=== PATIENT | female | born 1950 | race Caucasian/White ===

== ENCOUNTER 2016-08-25 08:18 | Outpatient (CLI) | payer MEDICARE, OTHER | END 2016-08-25 08:19 | disposition home or self-care (01) | DX: E03.9 Hypothyroidism, unspecified (principal); Z79.899 Other long term (current) drug therapy ==

== ENCOUNTER 2016-09-13 08:00 | Outpatient (CLI) | payer MEDICARE, OTHER | END 2016-09-13 23:59 | disposition home or self-care (01) | DX: E78.2 Mixed hyperlipidemia (principal); D64.9 Anemia, unspecified; Z13.9 Encounter for screening, unspecified ==

== ENCOUNTER 2016-09-14 10:51 | Outpatient (CLI) | payer MEDICARE, OTHER | END 2016-09-14 10:52 | disposition home or self-care (01) | DX: M81.0 Age-related osteoporosis without current pathological fracture (principal); Z78.0 Asymptomatic menopausal state ==

== ENCOUNTER 2016-09-14 10:53 | Outpatient (CLI) | payer MEDICARE, OTHER | END 2016-09-14 10:54 | disposition home or self-care (01) | DX: I71.2 Thoracic aortic aneurysm, without rupture (principal); M81.0 Age-related osteoporosis without current pathological fracture; Z78.0 Asymptomatic menopausal state ==

== ENCOUNTER 2016-11-12 13:44 | Outpatient (CLI) | payer MEDICARE, OTHER | END 2016-11-12 13:45 | disposition home or self-care (01) | DX: Z12.31 Encounter for screening mammogram for malignant neoplasm of breast (principal) ==

== ENCOUNTER 2017-03-15 10:35 | Outpatient (CLI) | payer MEDICARE, OTHER ==
[2017-03-15 16:22] LABS: BASOPHILS # (AUTO) 0.1 10^3/uL (0.0-0.1); BASOPHILS % (AUTO) 1.2 %; EOSINOPHILS # (AUTO) 0.1 10^3/uL (0.0-0.7); EOSINOPHILS % (AUTO) 3.1 %; HCT - HEMATOCRIT 35.8 % (37.0-47.0); HGB - HEMOGLOBIN 12.3 g/dL (12.0-16.0); LYMPHOCYTES % (AUTO) 42.7 %; MEAN CORPUSCULAR HEMOGLOBIN 30.8 pg (27.0-31.0); MEAN CORPUSCULAR HGB CONC 34.3 g/dL (32.0-36.0); MEAN CORPUSCULAR VOLUME 89.9 fL (81.0-99.0); MONOCYTES # (AUTO) 0.3 10^3/uL (0.0-1.0); MONOCYTES % (AUTO) 6.3 %; NEUTROPHILS # (AUTO) 2.2 10^3/uL (1.5-6.6); NEUTROPHILS % (AUTO) 46.7 %; RED BLOOD COUNT 3.98 10^6/uL (4.20-5.40); RED CELL DISTRIBUTION WIDTH 13.9 % (12.0-15.0); UNCORRECTED WHITE BLOOD COUNT 4.8 x10^3/uL; WHITE BLOOD COUNT 4.8 x10^3/uL (4.8-10.8)
== END 2017-03-15 10:36 | disposition home or self-care (01) ==
LOC: LAB.R 10:35
PROVIDERS: ATTEND Nurse Practitioner Primary Care
DX: D64.9 Anemia, unspecified (principal)
CPT/HCPCS: 85025

== ENCOUNTER 2017-09-19 16:18 | Outpatient (CLI) | payer MEDICARE, OTHER | END 2017-09-19 16:19 | disposition home or self-care (01) | LOC: DI 16:18 | PROVIDERS: ATTEND Physician Assistant Medical | DX: Z53.9 Procedure and treatment not carried out, unspecified reason (principal) ==

== ENCOUNTER 2017-09-20 08:38 | Outpatient (CLI) | payer MEDICARE, OTHER ==
--- NOTE | 2017-09-20 18:28 | CT Report ---
DATE OF SERVICE: 09/20/2017 CT SINUSES WITHOUT CONTRAST: 09/20/2017 CLINICAL INDICATION: Chronic sinus disease. TECHNIQUE: Axial CT images of the paranasal sinuses were obtained without contrast, following which sagittal and coronal reconstructions were performed. In accordance with CT protocol optimization, one or more of the following dose reduction techniques were utilized for this exam: Automated exposure control, adjustment of mA and/or KV based on patient size, or use of iterative reconstructive technique. FINDINGS: Postoperative changes are seen in the mandible and maxilla. There is mild mucosal thickening in the inferior aspect of the right maxillary sinus. The ostiomeatal units are patent bilaterally. No air fluid levels are present. No osseous destruction is appreciated. IMPRESSION: MILD CHRONIC RIGHT MAXILLARY SINUS DISEASE. POSTOPERATIVE CHANGES. TD: 09/20/2017 18:27
== END 2017-09-20 08:39 | disposition home or self-care (01) ==
LOC: DI 08:38
PROVIDERS: ATTEND Physician Assistant Medical
DX: J32.0 Chronic maxillary sinusitis (principal)
CPT/HCPCS: 70486

== ENCOUNTER 2017-09-21 15:54 | Outpatient (CLI) | payer MEDICARE, OTHER | END 2017-09-21 15:55 | disposition home or self-care (01) | LOC: LAB.R 15:54 | PROVIDERS: ATTEND Physician Assistant Medical | DX: R50.9 Fever, unspecified (principal); R10.84 Generalized abdominal pain; R19.7 Diarrhea, unspecified | CPT/HCPCS: 81599; 82710; 83630; 87045; 87046; 87177; 87209; 87493 ==

== ENCOUNTER 2017-09-21 16:35 | Outpatient (CLI) | payer MEDICARE, OTHER ==
[2017-09-21 15:20] LABS: BASOPHILS % (AUTO) 0.3 %; EOSINOPHILS % (AUTO) 0.5 %; HGB - HEMOGLOBIN 12.2 g/dL (12.0-16.0); LYMPHOCYTES # (AUTO) 1.1 10^3/uL (1.5-3.5); LYMPHOCYTES % (AUTO) 14.3 %; MEAN CORPUSCULAR VOLUME 88.1 fL (81.0-99.0); MEAN PLATELET VOLUME 7.2 fL (7.9-10.8); MONOCYTES # (AUTO) 0.6 10^3/uL (0.0-1.0); MONOCYTES % (AUTO) 7.5 %; NEUTROPHILS % (AUTO) 77.4 %; PLT - PLATELET COUNT 198 10^3/uL (130-450); RED BLOOD COUNT 4.07 10^6/uL (4.20-5.40); RED CELL DISTRIBUTION WIDTH 13.8 % (12.0-15.0); WHITE BLOOD COUNT 7.8 x10^3/uL (4.8-10.8)
[2017-09-21 15:35] LABS: ALBUMIN 3.4 g/dL (3.2-5.5); ALBUMIN/GLOBULIN RATIO 0.9 (1.0-2.2); BILIRUBIN,TOTAL 0.5 mg/dL (0.2-1.0); CALCIUM 8.5 mg/dL (8.5-10.3); CREATININE 0.7 mg/dL (0.4-1.0); CRP - C-REACTIVE PROTEIN 5.3 mg/dL (0-1.0); TOTAL PROTEIN 7.1 g/dL (6.7-8.2)
[2017-09-21] MEDS ORDERED: IOPAMIDOL-300 100 ML VIAL ONE (16:44)
[2017-09-21] MEDS ORDERED: IOPAMIDOL-300 50 ML VIAL ONE (16:44)
[2017-09-21] MEDS: IOPAMIDOL-300 50 ML VIAL PO ONE (18:11)
[2017-09-21] MEDS: IOPAMIDOL-300 100 ML VIAL IVP ONE (18:12)
--- NOTE | 2017-09-21 18:37 | CT Preliminary Report ---
Exam: CT ABDOMEN/PELVIS W/ IMPRESSION: 1. Markedly abnormal colon. Differential includes colitis, pseudomembranous colitis, inflammatory bow el disease, ischemia. 2. Appendix not visualized. 3. Mild ascites. RADIA The call report notification system was initiated by Dr. Altagracia Franklin at 18:31 hrs on 09/21/17. The above findings were discussed with LISSA Steiner by Dr. Altagracia Franklin at 18:36 hrs on 09/21/17. SITE ID: [id number]
--- NOTE | 2017-09-21 18:52 | CT Report ---
EXAM: CT ABDOMEN AND PELVIS EXAM DATE: 09/21/2017 06:08 PM. CLINICAL HISTORY: Fever and left-sided abdominal pain since yesterday. COMPARISONS: 07/16/2016. TECHNIQUE: Routine helical CT imaging was performed through the abdomen and pelvis. IV contrast: 100 mL Isovue-300. Enteric contrast: 50 mL Isovue-300, diluted in 1 L of water, oral contrast. Reconstruc tions: Coronal and sagittal. In accordance with CT protocol optimization, one or more of the following dose reduction techniques w ere utilized for this exam: automated exposure control, adjustment of mA and/or KV based on patient s ize, or use of iterative reconstructive technique. FINDINGS: Lung Bases: Unremarkable. Liver: Stable hepatic cysts. Gallbladder/Bile Ducts: Unremarkable. Spleen: Stable 1 cm cyst. Normal caliber. Pancreas: Normal. Adrenal Glands: Normal. Kidneys: Normal. Small renal cysts. No masses or hydronephrosis. Peritoneal Cavity/Bowel: New marked circumferential edema involving the entirety of the colon with a small amount of adjacent mesenteric edema. Oral contrast extends through to the distal ileum. Small bowel wall is of normal caliber. No free air. Small amount of free fluid. No abscess. Multiple subcentimeter, as well as several mildly enlarged mesenteric lymph nodes. Shotty retroperito richard adenopathy. Appendix not visualized. Pelvic Organs: Moderate amount of free pelvic fluid.. The bladder and visualized pelvic organs are wi thin normal limits. Normal rectum. Vasculature: No aneurysms or other significant abnormality. Bones: Postoperative changes in lower lumbar spine. Other: None. IMPRESSION: 1. Markedly abnormal colon. Differential includes colitis, pseudomembranous colitis, inflammatory bow el disease, ischemia. 2.Appendix not visualized. 3. Mild ascites. RADIA The call report notification system was initiated by Dr. Altagracia Franklin at 18:31 hrs on 09/21/17. The above findings were discussed with LISSA Steiner by Dr. Altagracia Franklin at 18:36 hrs o n 09/21/17. Referring Provider Line: [phone] SITE ID: [id number]
== END 2017-09-21 16:36 | disposition home or self-care (01) ==
LOC: DI 16:35
PROVIDERS: ATTEND Physician Assistant Medical
DX: R93.3 Abnormal findings on diagnostic imaging of other parts of digestive tract (principal); R10.84 Generalized abdominal pain; R50.9 Fever, unspecified
CPT/HCPCS: 74177; 80053; 83690; 85025; 85651; 86140

== ENCOUNTER 2017-09-21 18:41 | Emergency (ER) | payer MEDICARE, OTHER ==
[2017-09-21] MEDS ORDERED: metroNIDAZOLE 250 MG TABLET PO STA (20:59)
[2017-09-21] MEDS ORDERED: CIPROFLOXACIN 250 MG TABLET PO STA (20:59)
[2017-09-21] MEDS ORDERED: ONDANSETRON ODT 4 MG TABLET TL STA (20:59)
--- NOTE | 2017-09-21 21:00 | ED Physician Documentation ---
PD HPI ABD PAIN - Stated complaint Stated Complaint: INFLAMMATION - Chief complaint Chief Complaint: Abd Pain - History obtained from History obtained from: Patient, Family - History of Present Illness Timing - onset: How many days ago (3) Timing - details: Gradual onset, Still present Quality: Cramping, Aching Location: All over / everywhere Associated symptoms: Nausea, Diarrhea Similar symptoms before: Work up / diagnostics, Treatment Recently seen: Clinic - Additional information Additional information: patient is a 67 year old female presenting to the emergency department for nausea, vomiting and abdominal pain. Patient states that it has been going on for a number of days. patient had been started on augmentin for chronic sinusitis. Patient saw her pmd who sent her for a CT which revealed colitis. patient was sent to the emergency department to check for C-diff. Review of Systems Constitutional: reports: Chills. denies: Fever Eyes: denies: Decreased vision Ears: reports: Reviewed and negative Nose: reports: Reviewed and negative Throat: reports: Reviewed and negative Cardiac: denies: Chest pain / pressure Respiratory: denies: Dyspnea, Cough, Wheezing GI: reports: Abdominal Pain, Nausea, Diarrhea. denies: Vomiting : denies: Dysuria, Frequency, Hesitancy Skin: denies: Rash, Lesions Neurologic: reports: Generalized weakness. denies: Focal weakness, Numbness Immunocompromised: denies: Immunocompromised PD PAST MEDICAL HISTORY - Past Medical History Past Medical History: Yes Cardiovascular: None Respiratory: Sleep apnea Neuro: None Endocrine/Autoimmune: HyPOthyroidism GI: GERD : None HEENT: Chronic hearing loss Psych: None Musculoskeletal: Osteoarthritis, Chronic back pain Derm: Eczema - Past Surgical History Past Surgical History: Yes General: Colonoscopy Ortho: Spine surgery /[employer]: Dilation and currettage, Oophrectomy, section - Present Medications Home Medications: Ambulatory Orders Medication Instructions Recorded Confirmed Calcium/Magnesium/Vit D3 [Calcium 1 each PO BID 12/22/12 09/21/17 500 mg Tablet] Cetirizine HCl [Zyrtec] 10 mg PO DAILY 12/22/12 09/21/17 Cholecalciferol (Vitamin D3) 2,000 unit PO BID 12/22/12 09/21/17 [Vitamin D-3] Cyanocobalamin (Vitamin B-12) 2,500 mcg SL DAILY 12/22/12 09/21/17 [Vitamin B-12] Docusate Sodium 250 mg PO DAILY 12/22/12 09/21/17 Gluc [place]/MSM/Magnesium/Vit C 1 each PO BID 12/22/12 09/21/17 [Glucosamine Complex-MSM Cap] Levothyroxine [Synthroid] 50 mcg PO QDAC 12/22/12 09/21/17 Multivitamin [Multivitamins] 1 each PO DAILY 12/22/12 09/21/17 [employer]-3 Fatty Acids/Fish Oil 1 each PO BID 12/22/12 09/21/17 [[employer] 3 Fish Oil Softgel] Simvastatin 20 mg PO HS 12/22/12 03/12/15 Atorvastatin [Lipitor] 0 mg 09/21/17 Ciprofloxacin [Cipro] 750 mg PO Q12H 3 Days tablet 09/21/17 Metronidazole [Flagyl] 500 mg PO TID #30 tablet 09/21/17 Ondansetron Odt [Zofran] 4 mg TL Q6H PRN #20 tablet 09/21/17 raNITIdine [Zantac] 150 mg PO DAILY 09/21/17 09/21/17 - Allergies Allergies/Adverse Reactions: Allergies Allergy/AdvReac Type Severity Reaction Status Date / Time latex Allergy Severe Rash Verified 03/12/15 22:01 codeine [Codeine] Allergy Intermediate Nausea Verified 03/12/15 22:01 erythromycin base Allergy Intermediate Rash Verified 03/12/15 22:01 [Erythromycin Base] acetaminophen [From Tylenol] AdvReac Intermediate Headache Verified 03/12/15 22: 01 aspirin AdvReac Intermediate Headache Verified 03/12/15 22:01 milk AdvReac Intermediate Cramps Verified 03/12/15 22:01 - Social History Does the pt smoke?: No Smoking Status: Never smoker Does the pt drink ETOH?: No Does the pt have substance abuse?: No - Immunizations Immunizations are current?: Yes Immunizations: TDAP >10years/unknown - POLST Patient has POLST: No PD ED PE NORMAL - Vitals Vital signs reviewed: Yes - General General: Alert and oriented X 3, Well developed/nourished - HEENT HEENT: Atraumatic, PERRL - Neck Neck: Supple, no meningeal sign - Cardiac Cardiac: RRR, No murmur - Respiratory Respiratory: No respiratory distress - Derm Derm: Normal color, Warm and dry, No rash - Extremities Extremities: No deformity, No edema - Neuro Neuro: Alert and oriented X 3, No motor deficit, No sensory deficit, Normal speech - Psych Psych: Normal mood PD ED PE EXPANDED - HEENT HEENT: Dry mucous membranes - Abdomen Abdomen: Tender to palpation, Epigastric, Generalized/diffuse. No: Rebound, Guarding Results - Vitals Vitals: Vital Signs - 24 hr 09/21/17 09/21/17 18:49 21:06 Temperature 37.3 C 37.5 C Heart Rate 78 88 Respiratory 16 18 Rate Blood Pressure 130/72 121/77 O2 Saturation 99 96 Oxygen O2 Source Room air PD MEDICAL DECISION MAKING - ED course Complexity details: reviewed old records, reviewed results, re-evaluated patient , considered differential, d/w patient, d/w family ED course: Patient was seen and examined at bedside. Previous diagnostics were reviewed. Patient was positive for campylobacter but c-diff was pending. there was a lab mix up and the c-diff was going to take two hours so patient was empirically started on metronidazole and cipro for camylobacter. Patient was also treated with zofran. Patient was able to tolerate PO without difficulty and was stable for discharge with outpatient follow up. After patient had gone home c-diff turned out to be negative and patient was called and made aware of the findings and told to stop the flagyl. Departure - Departure Disposition: 01 Home, Self Care Clinical Impression: Colitis Condition: Good Instructions: Fecal Occult Blood Test Follow-Up: Beckie Davis PA-C [Primary Care Provider] - Within 3 Days Prescriptions: Ciprofloxacin [Cipro] 750 mg PO Q12H 3 Days tablet Metronidazole [Flagyl] 500 mg PO TID #30 tablet Ondansetron Odt [Zofran] 4 mg TL Q6H PRN #20 tablet PRN Reason: Nausea / Vomiting Comments: Your stool sample was positive for campylobacter and you will be treated with cipro 2 times a day for three days. We will also start you on the treated for C -diff with metronidazole. You should call your doctor office tomorrow to see if you need to continue your therapy. You should not drink alcohol while taking the metronidazole as it can cause a severe reaction. You have been prescribed zofran for nausea and it is important that you stay well hydrated with gatorade or other electrolyte solution. You can take motrin as needed for pain. You may return to the emergency department at any time for new, worsening or uncontrollable symptoms. Discharge Date/Time: 09/21/17 21:11
[2017-09-21 21:07] VITALS: BP 121/77
== END 2017-09-21 21:11 | disposition home or self-care (01) ==
LOC: ED 18:41
DX: K52.9 Noninfective gastroenteritis and colitis, unspecified (principal); A04.5 Campylobacter enteritis; R50.9 Fever, unspecified; R10.84 Generalized abdominal pain; R93.3 Abnormal findings on diagnostic imaging of other parts of digestive tract; E03.9 Hypothyroidism, unspecified
CPT/HCPCS: 74177; 80053; 81599; 82710; 83630; 83690; 85025; 85651; 86140; 87045; 87046; 87177; 87209; 87493; 99283; A9270; Q0162; Q9967

== ENCOUNTER 2017-09-27 08:58 | Outpatient (CLI) | payer MEDICARE, OTHER ==
[2017-09-27 09:12] LABS: BASOPHILS # (AUTO) 0.1 10^3/uL (0.0-0.1); EOSINOPHILS # (AUTO) 0.3 10^3/uL (0.0-0.7); EOSINOPHILS % (AUTO) 4.1 %; HGB - HEMOGLOBIN 12.2 g/dL (12.0-16.0); LYMPHOCYTES # (AUTO) 2.3 10^3/uL (1.5-3.5); MEAN CORPUSCULAR HEMOGLOBIN 29.4 pg (27.0-31.0); MEAN CORPUSCULAR HGB CONC 33.5 g/dL (32.0-36.0); MEAN CORPUSCULAR VOLUME 87.8 fL (81.0-99.0); MEAN PLATELET VOLUME 6.5 fL (7.9-10.8); MONOCYTES # (AUTO) 0.6 10^3/uL (0.0-1.0); MONOCYTES % (AUTO) 7.7 %; NEUTROPHILS # (AUTO) 4.1 10^3/uL (1.5-6.6); NEUTROPHILS % (AUTO) 56.2 %; PLT - PLATELET COUNT 279 10^3/uL (130-450); RED BLOOD COUNT 4.17 10^6/uL (4.20-5.40); RED CELL DISTRIBUTION WIDTH 14.2 % (12.0-15.0); WHITE BLOOD COUNT 7.3 x10^3/uL (4.8-10.8)
[2017-09-27 09:26] LABS: ALBUMIN 3.8 g/dL (3.2-5.5); BILIRUBIN,TOTAL 0.4 mg/dL (0.2-1.0); CALCIUM 9.5 mg/dL (8.5-10.3); CREATININE 0.8 mg/dL (0.4-1.0); TOTAL PROTEIN 7.5 g/dL (6.7-8.2)
== END 2017-09-27 08:59 | disposition home or self-care (01) ==
LOC: LAB 08:58
PROVIDERS: ATTEND Internal Medicine
DX: I71.2 Thoracic aortic aneurysm, without rupture (principal); E03.9 Hypothyroidism, unspecified; E78.5 Hyperlipidemia, unspecified; D64.9 Anemia, unspecified; Z79.899 Other long term (current) drug therapy
CPT/HCPCS: 36415; 80053; 84443; 85025

== ENCOUNTER 2017-10-31 08:02 | Outpatient (CLI) | payer MEDICARE, OTHER ==
--- NOTE | 2017-11-01 18:18 | Mammography Report ---
DIGITAL SCREENING MAMMOGRAM: 10/31/2017 CLINICAL INDICATION: A 67-year-old for screening. COMPARISON: 10/2016, 10/2015, 06/2014, 07/2012, 07/2011, 05/2010. TECHNIQUE: Routine CC and MLO projections were obtained of the breasts. FINDINGS: The breasts demonstrate scattered fibroglandular densities bilaterally. A few punctate, typically benign calcifications are present. No suspicious masses, clustered microcalcifications, or regions of architectural distortion are identified. IMPRESSION: BENIGN FINDINGS. RECOMMENDATION: Routine annual screening unless otherwise clinically indicated. BIRADS category 2 benign findings. STANDARD QUALIFYING STATEMENTS 1. This examination was reviewed with the aid of Computed-Aided Detection (CAD). 2. A negative or benign imaging report should not delay biopsy if clinically suspicious findings are present. Consider surgical consultation if warranted. More than 5% of cancers are not identified by imaging. 3. Dense breasts may obscure an underlying neoplasm. TD: 11/01/2017 18:17
== END 2017-10-31 08:03 | disposition home or self-care (01) ==
LOC: DI 08:02
PROVIDERS: ATTEND Internal Medicine
DX: Z12.31 Encounter for screening mammogram for malignant neoplasm of breast (principal)
CPT/HCPCS: 77067

== ENCOUNTER 2018-04-13 08:26 | Outpatient (CLI) | payer MEDICARE, OTHER ==
--- NOTE | 2018-04-13 12:22 | XRAY Report ---
Reason: TIBIAL MASS Procedure Date: 04/13/2018 Accession Number: [id number] / [id number] Procedure: XR - Tib/Fib RT CPT Code: FULL RESULT: EXAM: RIGHT TIBIA/FIBULA RADIOGRAPHY EXAM DATE: 04/13/2018 08:40 AM. CLINICAL HISTORY: Tibial mass. COMPARISON: None. TECHNIQUE: 2 views. FINDINGS: Bones: Normal. No fracture or bone lesion. Joints: The visualized knee and ankle joints are normal aside from mild degenerative changes in the lateral femoral tibial compartment. No effusions. Soft Tissues: Normal. No soft tissue swelling or radiographically overt soft tissue mass. IMPRESSION: No mass is identified. RADIA
== END 2018-04-13 08:27 | disposition home or self-care (01) ==
LOC: DI 08:26
PROVIDERS: ATTEND Internal Medicine
DX: R22.40 Localized swelling, mass and lump, unspecified lower limb (principal)

== ENCOUNTER 2020-03-04 10:05 | Emergency (ER) | payer MEDICARE, OTHER ==
[2020-03-04 10:41] LABS: EOSINOPHILS # (AUTO) 0.3 10^3/uL (0.0-0.7); EOSINOPHILS % (AUTO) 7.9 %; HGB - HEMOGLOBIN 13.1 g/dL (12.0-16.0); LYMPHOCYTES # (AUTO) 1.2 10^3/uL (1.5-3.5); LYMPHOCYTES % (AUTO) 31.4 %; MEAN CORPUSCULAR HEMOGLOBIN 30.7 pg (27.0-31.0); MEAN CORPUSCULAR HGB CONC 32.6 g/dL (32.0-36.0); MEAN CORPUSCULAR VOLUME 94.1 fL (81.0-99.0); MEAN PLATELET VOLUME 10.4 fL (7.9-10.8); MONOCYTES # (AUTO) 0.3 10^3/uL (0.0-1.0); MONOCYTES % (AUTO) 8.4 %; NEUTROPHILS % (AUTO) 51.3 %; PLT - PLATELET COUNT 148 10^3/uL (130-450); RED BLOOD COUNT 4.27 10^6/uL (4.20-5.40); RED CELL DISTRIBUTION WIDTH 13.3 % (12.0-15.0); WHITE BLOOD COUNT 3.9 x10^3/uL (4.8-10.8)
--- NOTE | 2020-03-04 10:53 | ED Physician Documentation ---
PD HPI CHEST PAIN - Stated complaint Stated Complaint: CP - Chief complaint Chief Complaint: Cardiac - History obtained from History obtained from: Patient - History of Present Illness Timing - onset: Today Timing - onset during: Rest Timing - duration: Hours Timing - details: Gradual onset, Still present Quality: Pressure, Tightness Location: Substernal Radiation: Right upper extremity. No: Jaw, Neck, Back, Abdominal, Left upper extremity Improved by: Rest Worsened by: Inspiration, Movement, Palpation Associated symptoms: Shortness of air. No: Diaphoresis, Nausea, Vomiting, Feeling faint / dizzy, General Weakness, Palpitations, Cough Similar symptoms before: Has not had sx before Recently seen: Not recently seen - Additional information Additional information: 69-year-old female who has been working cleaning up her house to listed has developed some anterior chest wall pain this morning and she has pain worse with inspiration and with moving around with touching her chest. She denies any radiation of this pain but she does have pain down her right arm which she will get periodically as she has some nerve damage there. She states that she has been working hard at cleaning her house to list it is now listed. Review of Systems Constitutional: denies: Fever, Myalgias, Fatigue Eyes: denies: Decreased vision Ears: denies: Ear pain Nose: denies: Rhinorrhea / runny nose, Congestion Throat: denies: Sore throat Cardiac: reports: Chest pain / pressure. denies: Palpitations, Pedal edema, Calf pain Respiratory: reports: Dyspnea. denies: Cough, Wheezing GI: denies: Abdominal Pain, Abdominal Swelling, Nausea, Vomiting : denies: Dysuria, Frequency Skin: denies: Rash Musculoskeletal: reports: Extremity pain. denies: Neck pain, Back pain Neurologic: denies: Generalized weakness, Focal weakness, Numbness PD PAST MEDICAL HISTORY - Past Medical History Cardiovascular: None Respiratory: Sleep apnea Endocrine/Autoimmune: HyPOthyroidism GI: GERD : None HEENT: Chronic hearing loss Psych: None Musculoskeletal: Osteoarthritis, Chronic back pain Derm: Eczema - Past Surgical History Past Surgical History: Yes General: Colonoscopy Ortho: Spine surgery /[employer]: Dilation and currettage, Oophrectomy, section - Present Medications Home Medications: Ambulatory Orders Medication Instructions Recorded Confirmed Calcium/Magnesium/Vit D3 [Calcium 1 each PO BID 12/22/12 09/21/17 500 mg Tablet] Cetirizine HCl [Zyrtec] 10 mg PO DAILY 12/22/12 09/21/17 Cholecalciferol (Vitamin D3) 2,000 unit PO BID 12/22/12 09/21/17 [Vitamin D-3] Cyanocobalamin (Vitamin B-12) 2,500 mcg SL DAILY 12/22/12 09/21/17 [Vitamin B-12] Docusate Sodium 250 mg PO DAILY 12/22/12 09/21/17 Gluc [place]aca/MSM/Magnesium/Vit C 1 each PO BID 12/22/12 09/21/17 [Glucosamine Complex-MSM Cap] Levothyroxine [Synthroid] 50 mcg PO QDAC 12/22/12 09/21/17 Multivitamin [Multivitamins] 1 each PO DAILY 12/22/12 09/21/17 [place]-3 Fatty Acids/Fish Oil 1 each PO BID 12/22/12 09/21/17 [[place] 3 Fish Oil Softgel] Simvastatin 20 mg PO HS 12/22/12 03/12/15 Atorvastatin [Lipitor] 0 mg 09/21/17 Ciprofloxacin [Cipro] 750 mg PO Q12H 3 Days tablet 09/21/17 Ondansetron Odt [Zofran] 4 mg TL Q6H PRN #20 tablet 09/21/17 metroNIDAZOLE [Flagyl] 500 mg PO TID #30 tablet 09/21/17 raNITIdine [Zantac] 150 mg PO DAILY 09/21/17 09/21/17 - Allergies Allergies/Adverse Reactions: Allergies Allergy/AdvReac Type Severity Reaction Status Date / Time latex Allergy Severe Rash Verified 03/04/20 10:11 codeine [Codeine] Allergy Intermediate Nausea Verified 03/04/20 10:11 erythromycin base Allergy Intermediate Rash Verified 03/04/20 10:11 [Erythromycin Base] acetaminophen [From Tylenol] AdvReac Intermediate Headache Verified 03/04/20 10:11 aspirin AdvReac Intermediate Headache Verified 03/04/20 10:11 milk AdvReac Intermediate Cramps Verified 03/04/20 10:11 - Social History Does the pt smoke?: No Smoking Status: Never smoker Does the pt drink ETOH?: No Does the pt have substance abuse?: No - Immunizations Immunizations are current?: Yes Immunizations: TDAP >10years/unknown - POLST Patient has POLST: No PD ED PE NORMAL - Vitals Vital signs reviewed: Yes (hypertensive ) - General General: Alert and oriented X 3, No acute distress - HEENT HEENT: Atraumatic, PERRL, EOMI - Neck Neck: Supple, no meningeal sign, No bony TTP - Cardiac Cardiac: RRR, No murmur - Respiratory Respiratory: No respiratory distress, Clear bilaterally, Other (there is chest wall tenderness along the costosternal margin bilaterally that reproduces the symptoms the patient is having. ) - Abdomen Abdomen: Soft, Non tender - Back Back: No CVA TTP, No spinal TTP - Derm Derm: Normal color, Warm and dry, No rash - Extremities Extremities: No deformity, No edema - Neuro Neuro: Alert and oriented X 3, wedger 2-12 intact, No motor deficit, No sensory deficit, Normal speech Eye Opening: Spontaneous Motor: Obeys Commands Verbal: Oriented GCS Score: 15 - Psych Psych: Normal mood, Normal affect Results - Vitals Vitals: Vital Signs - 24 hr 03/04/20 03/04/20 03/04/20 10:11 10:35 11:16 Temperature 36.4 C L Heart Rate 66 68 63 Respiratory 18 13 13 Rate Blood Pressure 151/83 H 143/77 H 140/84 H O2 Saturation 100 100 100 Oxygen O2 Source Room air - EKG (time done) 1019 Rate: Rate (enter#) (65) Rhythm: NSR Intervals: Prolonged MO Compare to prior EKG: Changed from prior EKG (SPT 03-12-2015 the MO interval has increased. ) Computer interpretation: Agree with computer - Labs Labs: Laboratory Tests 03/04/20 03/04/20 03/04/20 10:35 10:35 10:35 WBC 3.9 L RBC 4.27 Hgb 13.1 Hct 40.2 MCV 94.1 MCH 30.7 MCHC 32.6 RDW 13.3 Plt Count 148 MPV 10.4 Neut # (Auto) 2.0 Lymph # (Auto) 1.2 L [place] # (Auto) 0.3 Eos # (Auto) 0.3 Baso # (Auto) 0.0 Absolute Nucleated RBC 0.00 Nucleated RBC % 0.0 Sodium 142 Potassium 3.4 L Chloride 105 Carbon Dioxide 28 Anion Gap 9.0 BUN 12 Creatinine 0.8 Estimated GFR (MDRD) 71 L Glucose 94 Calcium 9.7 Total Bilirubin 0.7 AST 28 ALT 28 Alkaline Phosphatase 65 Troponin I High Sens < 2.3 L Total Protein 7.4 Albumin 4.2 Globulin 3.2 Albumin/Globulin Ratio 1.3 Lipase 51 - Rads (name of study) chest Radiology: Prelim report reviewed (Impression: 1. Findings compatible with COPD redemonstrated without acute consolidation.), EMP read indepedently, See rad report PD MEDICAL DECISION MAKING - ED course Complexity details: reviewed results, re-evaluated patient, considered differential, d/w patient ED course: 69-year-old female with an overuse phenomena has chest wall tenderness and pleuritic chest pain. Her studies are otherwise unremarkable she is administered dexamethasone 10 mg intravenously as well as Toradol 30 mg intravenously. Departure - Departure Disposition: 01 Home, Self Care Clinical Impression: Costochondritis, acute Condition: Stable Instructions: ED Chest Pain Costochondritis Follow-Up: Lu Gilbert MD [Primary Care Provider] -
[2020-03-04 10:55] LABS: ALBUMIN 4.2 g/dL (3.2-5.5); ALBUMIN/GLOBULIN RATIO 1.3 (1.0-2.2); BILIRUBIN,TOTAL 0.7 mg/dL (0.2-1.0); CALCIUM 9.7 mg/dL (8.5-10.3); CREATININE 0.8 mg/dL (0.4-1.0); TOTAL PROTEIN 7.4 g/dL (6.7-8.2)
[2020-03-04] MEDS ORDERED: KETOROLAC 30 MG/ML VIAL IVP STA (11:05)
[2020-03-04] MEDS ORDERED: DEXAMETHASONE 10 MG/ML VIAL IVP STA (11:05)
--- NOTE | 2020-03-04 11:18 | XRAY Report ---
PROCEDURE: Chest 1 View X-Ray INDICATIONS: Chest Pain TECHNIQUE: One view of the chest was acquired. COMPARISON: 08/08/2013. FINDINGS: Surgical changes and devices: None. Lungs and pleura: No pleural effusions or pneumothorax. Lungs are clear. There is hyperinflation of lungs with slight flattening of the hemidiaphragms compatible with COPD. No focal consolidation. Mediastinum: Mediastinal contours appear normal. Heart size is normal. Bones and chest wall: No suspicious bony lesions. Overlying soft tissues appear unremarkable. IMPRESSION: 1. Findings compatible with COPD redemonstrated without acute consolidation. Reviewed by: Mo Webb MD on 03/04/2020 11:17 AM PDT Approved by: Mo Webb MD on 03/04/2020 11:17 AM PDT Station ID: [id number]
[2020-03-04 11:20] VITALS: BP 140/84
== END 2020-03-04 11:36 | disposition home or self-care (01) ==
LOC: ED 10:05
DX: M94.0 Chondrocostal junction syndrome [Tietze] (principal); M70.88 Other soft tissue disorders related to use, overuse and pressure other site; Y93.E9 Activity, other interior property and clothing maintenance; I44.0 Atrioventricular block, first degree
CPT/HCPCS: 36415; 71045; 80053; 83690; 84484; 85025; 93005; 96374; 99284

== ENCOUNTER 2020-03-10 13:04 | Outpatient (CLI) | payer MEDICARE, OTHER | END 2020-03-10 13:05 | disposition home or self-care (01) | LOC: COV 13:04 | PROVIDERS: ATTEND Family Medicine | DX: M79.10 Myalgia, unspecified site (principal); R53.83 Other fatigue; R09.81 Nasal congestion; Z20.828 Contact with and (suspected) exposure to other viral communicable diseases ==